=== PATIENT | female | born 1975 | race Caucasian/White ===

== ENCOUNTER 2024-10-16 17:52 | Emergency (ER) | payer OTHER ==
[~2024-10-16] VITALS: Ht 165.1 cm; Wt 86.0 kg
[2024-10-16 18:00] VITALS: O2SAT 98
[2024-10-16] MEDS: KETOROLAC 30MG/ML VIAL IM ONE (19:06)
[2024-10-16] MEDS: LIDOCAINE 5% PATCH TOP SCH (19:06)
[2024-10-16] MEDS ORDERED: CYCL10TA21 MT (20:07)
[2024-10-16] MEDS ORDERED: LIDO-53 TP (20:07)
[2024-10-16] MEDS ORDERED: IBUP-1455 MT (20:07)
[2024-10-16 20:27] VITALS: BP 135/84; PULSE 91; RESP 18; TEMP 36.4; O2SAT 98
== END 2024-10-16 20:39 | disposition home or self-care (01) ==
LOC: ER 17:52
DX: M54.50 Low back pain, unspecified (principal); E11.9 Type 2 diabetes mellitus without complications; I10 Essential (primary) hypertension; V43.52XA Car driver injured in collision with other type car in traffic accident, initial encounter; Y93.89 Activity, other specified; Y92.410 Unspecified street and highway as the place of occurrence of the external cause; Y99.8 Other external cause status
CPT/HCPCS: 99283; 72100; 96372; J1885